=== PATIENT | female | born 1925 | race Caucasian/White ===

== ENCOUNTER → 2016-03-21 | Outpatient (CLI) | payer OTHER, MEDICARE ==
[~2016-03-21] MED LIST: ACET325T96 PO; AMLO-114 PO; CELE100C PO; CEPH500C PO; CLB/200 PO; DORZ1SOL6 OPR; FURO-85 PO; GLIP2.5T11 PO; IMD/2 PO; LISI5TAB3 PO; LPR50X PO; LSN5 PO; NZRCR TOP; PANT40TA PO; POTA-335 PO; POTA20TA13 PO; PRAMCRE2 TOP; SIMV20TA2 PO; ZLF/50 PO
[2016-03-21 12:37] LABS: BASO % 0.1 %; BASO ABS # 0.01 K/uL (0-0.2); COMPLETE YES; EOS % 1.5 %; HEMATOCRIT 41.4 % (37-47); IG% 0.3 %; LYMPH % 34.3 %; LYMPH ABS # 2.49 K/uL (1.2-3.4); MEAN CELL VOLUME 98.8 fL (80-100); MEAN CORPUSCULAR HEMOGLOBIN 32.5 pg (25-34); MEAN CORPUSCULAR HGB CONC 32.9 g/dl (32-36); MEAN PLATELET VOLUME 12.6 fL (7.4-10.4); MONO % 9.4 %; NEUT % 54.4 %; PLATELET COUNT 168 K/uL (130-400); RED BLOOD COUNT 4.19 M/uL (4.2-5.4); WHITE BLOOD COUNT 7.25 K/uL (4.8-10.8)
[2016-03-21 12:45] LABS: BLOOD UREA NITROGEN 16 mg/dl (7-18); BUN/CREATININE RATIO 19.1 (10-20); CALCIUM 8.9 mg/dl (8.5-10.1); CARBON DIOXIDE 25 mmol/L (21-32); CHLORIDE 109 mmol/L (98-107); CREATININE 0.81 mg/dl (0.60-1.20); GLUCOSE 126 mg/dl (70-99); POTASSIUM 4.3 mmol/L (3.5-5.1); SODIUM 144 mmol/L (136-145)
[2016-03-21 13:02] LABS: ESTIMATED AVERAGE GLUCOSE 146 mg/dl; HA1C FLAG Normal (Normal)
== END | disposition home or self-care (01) ==
LOC: C.LABWYN 13:55
PROVIDERS: ATTEND Internal Medicine
DX: E11.9 Type 2 diabetes mellitus without complications (principal)

== ENCOUNTER → 2016-04-26 | Outpatient (CLI) | payer OTHER, MEDICARE ==
--- NOTE | 2016-04-26 15:36 | DIAGNOSTIC IMAGING REPORT ---
CHEST 2 VIEWS ROUTINE CLINICAL HISTORY: R05 COUGH dyspnea COMPARISON STUDY: 01/10/2016 FINDINGS: There is evidence for minimal infiltrative change medial left base. Lungs otherwise are clear. Mild chronic elevation right hemidiaphragm. IMPRESSION: Small parenchymal infiltrate medial left base Electronically signed by: aMrk Mercado M.D. 04/26/2016 3:35 PM Dictated Date/Time: 04/26/2016 3:34 PM
== END | disposition home or self-care (01) ==
LOC: C.RAD1850 15:02
PROVIDERS: ATTEND Family Medicine
DX: Z11.1 Encounter for screening for respiratory tuberculosis (principal); J98.4 Other disorders of lung

== ENCOUNTER → 2016-06-20 | Outpatient (CLI) | payer OTHER, MEDICARE ==
[2016-06-20 10:53] LABS: BASO % 0.3 %; BASO ABS # 0.02 K/uL (0-0.2); COMPLETE YES; EOS % 1.7 %; IG% 0.3 %; LYMPH % 29.6 %; LYMPH ABS # 2.21 K/uL (1.2-3.4); MEAN CELL VOLUME 100.4 fL (80-100); MEAN CORPUSCULAR HEMOGLOBIN 32.5 pg (25-34); MEAN CORPUSCULAR HGB CONC 32.4 g/dl (32-36); MEAN PLATELET VOLUME 12.3 fL (7.4-10.4); MONO % 10.6 %; NEUT % 57.5 %; PLATELET COUNT 209 K/uL (130-400); RED BLOOD COUNT 4.58 M/uL (4.2-5.4); WHITE BLOOD COUNT 7.46 K/uL (4.8-10.8)
[2016-06-20 11:27] LABS: ESTIMATED AVERAGE GLUCOSE 166 mg/dl; HA1C FLAG Normal (Normal)
[2016-06-20 11:40] LABS: ALT/SGPT 43 U/L (12-78); BLOOD UREA NITROGEN 11 mg/dl (7-18); BUN/CREATININE RATIO 14.3 (10-20); CALCIUM 9.5 mg/dl (8.5-10.1); CARBON DIOXIDE 27 mmol/L (21-32); CHLORIDE 106 mmol/L (98-107); CHOLESTEROL 110 mg/dl (0-200); CREATININE 0.79 mg/dl (0.60-1.20); GLUCOSE 169 mg/dl (70-99); POTASSIUM 3.8 mmol/L (3.5-5.1); SODIUM 142 mmol/L (136-145)
[2016-06-20 11:51] LABS: AST/SGOT 23 U/L (15-37); CHOLESTEROL/HDL RATIO 3.4; HDL CHOLESTEROL 32 mg/dl; LDL CHOLESTEROL CALCULATED 38 mg/dl; TRIGLYCERIDES 199 mg/dl (0-150); VERY LOW DENSITY LIPOPROT CALC 40 mg/dl
== END | disposition home or self-care (01) ==
LOC: C.LABWYN 10:04
PROVIDERS: ATTEND Physician Assistant
DX: E11.9 Type 2 diabetes mellitus without complications (principal); E78.00 Pure hypercholesterolemia, unspecified

== ENCOUNTER 2016-06-27 22:41 | Emergency (ER) | payer OTHER, MEDICARE ==
[~2016-06-27] VITALS: Ht 160 cm; Wt 75.7 kg
[~2016-06-27 22:41] MED LIST changes: -CEPH500C PO; -LSN5 PO; -NZRCR TOP; -POTA20TA13 PO; -PRAMCRE2 TOP
[2016-06-27 22:47] VITALS: TEMP 36.3; Ht 160 cm; Wt 75.7 kg
[2016-06-27] MEDS ORDERED: ACETAMINOPHEN 500 MG TAB PO STA (23:05)
--- NOTE | 2016-06-27 23:16 | EMERGENCY ROOM VISIT NOTE ---
History Report prepared by Werner: Jose Martinez Under the Supervision of: Dr. Bismark Knight M.D. First contact with patient: 22:58 Chief Complaint: FALL Stated Complaint: FALL History of Present Illness The patient is an 89 year old female who presents to the Emergency Room with complaints of a sudden fall occurring prior to arrival. The patient's daughter states that the patient fell and hit her right leg, arm, and the right side of her face. She is additionally complaining of some neck pain. The daughter states that the patient just lost balance while getting into bed. The daughter states that the patient had a stroke in the past, and she has some right-sided weakness leading her to fall. Source of History: patient, family Onset: prior to arrival Position: other (global) Quality: other (fall) Timing: other (sudden) Associated Symptoms: + neck pain Note: Associated symptoms: Facial pain Review of Systems See HPI for pertinent positives & negatives. A total of 10 systems reviewed and were otherwise negative. Past Medical & Surgical Medical Problems: (1) Coronary artery disease (2) CVA (cerebral vascular accident) (3) History of orthopedic surgery (4) Hyperlipidemia (5) Hypertension (6) Precordial chest pain Surgical Problems: (1) History of appendectomy (2) History of cholecystectomy (3) History of hysterectomy Family History Cancer Diabetes mellitus Heart disease Hypertension Stroke Social History Smoking Status: Never Smoker Drug Use: none Marital Status: Housing Status: lives with family Occupation Status: retired Current/Historical Medications Scheduled Amlodipine (Norvasc), 10 MG PO QAM Celecoxib (Celebrex), 200 MG PO 3XWK Cephalexin Monohydrate (Keflex), 500 MG PO TID Dorzolamide Hcl-Timolol Maleat (Cosopt Oph), 1 DROP OPR BID Furosemide (Lasix), 20 MG PO QAM Glipizide (Glipizide Er), 2.5 MG PO QAM Ketoconazole (Ketoconazole), 1 APPLN TOP BID Lisinopril (Lisinopril), 5 MG PO DAILY Metoprolol Tartrate (Metoprolol Tartrate), 75 MG PO BID Pantoprazole (Protonix), 40 MG PO DAILY Potassium Chloride Microencaps (Potassium Chloride Er), 1 TAB PO DAILY Sertraline HCl (Sertraline HCl), 75 MG PO QAM Simvastatin (Zocor), 20 MG PO QPM Scheduled PRN Acetaminophen Tab (Tylenol), 650 MG PO Q4H PRN for Pain or Fever Celecoxib (CeleBREX), 200 MG PO 4XWK PRN for Pain Loperamide Hcl (Imodium), 2 MG PO Q4H PRN for Diarrhea Wusulewnz-Gmrljplxntmlo-Vpeorp (Preparation H), 1 APPLN TOP BID PRN for irritation Allergies Coded Allergies: No Known Allergies (Unverified , 06/27/16) Physical Exam Vital Signs Date Time Temp Pulse Resp B/P Pulse Ox O2 Delivery O2 Flow Rate FiO2 06/28/16 01:25 77 18 140/75 92 Room Air 06/28/16 00:08 79 18 153/80 93 Room Air 06/28/16 00:08 79 20 153/81 92 Room Air 06/27/16 23:17 82 18 171/87 97 Room Air 06/27/16 22:47 36.3 81 18 165/70 98 Room Air Physical Exam GENERAL: Elderly and anxious appearing. Minimal distress HEENT: No acute trauma, normocephalic atraumatic, mucous membranes moist, no nasal congestion, no scleral icterus. NECK: No stridor, no adenopathy, no meningismus, trachea is midline. LUNGS: No dyspnea. Clear to auscultation and equal bilaterally. No wheeze, no rhonchi. HEART: Regular rate and rhythm. No murmurs, rubs, gallops appreciated. ABDOMEN: Soft, nontender, bowel sounds positive, no masses appreciated, no peritonitis. BACK: No midline tenderness, no CVA tenderness EXTREMITIES: Tenderness to palpation over the right lateral thigh. Normal motion all extremities, no cyanosis, no edema. NEUROLOGIC: Mildly demented. GCS 14. Alert and oriented, no acute motor or sensory deficits, no focal weakness, cranial nerves grossly intact. SKIN: No rash, no jaundice, no diaphoresis. Medical Decision & Procedures ER Provider Diagnostic Interpretation: X ray results are stated below per my interpretation. 4 view right femur: Arthritic changes. No fracture. No dislocation 1 view pelvis: Arthritic changes. No fracture. No dislocation 1 view chest: No fracture. No dislocation. No pneumothorax. No infiltrate appreciated. CT results and stated below per my review and radiologist interpretation: CT HEAD: No acute intracranial hemorrhage of mass effect. No evidence of skull fracture. Chronic findings are unchanged from prior CT 01/10/16: Left frontal encephalomalacia superiorly, consistent with remote infarct, Wallerian degeneration at left tata. White matter hypodensities, likely representing chronic small vessel ischemic changes. CT C SPINE: No evidence of acute fracture. Moderate to sever multilevel degenerative changes including posterior disc/ osteophyte complex at C5-C6 causing moderate to severe canal narrowing and uncovertebral osteophytes and facet arthropathy causing multilevel foraminal narrowings. Facet fusion at C2-C3. Laboratory Results Test 06/27/16 23:00 Urine Color YELLOW Urine Appearance CLEAR (CLEAR) Urine pH 7.0 (4.5-7.5) Urine Specific [place] 1.010 (1.000-1.030) Urine Protein NEG (NEG) Urine Glucose (UA) 1+ (NEG) Urine Ketones NEG (NEG) Urine Occult Blood NEG (NEG) Urine Nitrite POS (NEG) Urine Bilirubin NEG (NEG) Urine Urobilinogen NEG (NEG) Urine Leukocyte Esterase LARGE (NEG) Urine WBC (Auto) >30 /hpf (0-5) Urine RBC (Auto) 0-4 /hpf (0-4) Urine Hyaline Casts (Auto) 1-5 /lpf (0-5) Urine Epithelial Cells (Auto) 0-5 /lpf (0-5) Urine Bacteria (Auto) 4+ (NEG) Laboratory results as reviewed by me. Medications Administered Medications (Trade) Dose Ordered Sig/Anup Route Start Time Stop Time Status Last Admin Dose Admin Acetaminophen (Tylenol Tab) 1,000 mg NOW STAT PO 06/27/16 23:05 06/27/16 23:08 DC 06/27/16 23:16 1,000 MG Cephalexin Monohydrate (Keflex Cap) 500 mg NOW ONCE PO 06/28/16 01:00 06/28/16 01:01 DC 06/28/16 01:21 500 MG ED Course 2258: The patient was evaluated in room C9. A complete history and physical exam was performed. 2305: Tylenol Tab 1000mg PO 0050: I reevaluated the patient, and she was stable. The patient and daughter agree with the treatment plan for UTI. 0100: Keflex Cap 500mg PO 0135: Reevaluated the patient. Discussed results and discharge instructions: She verbalized understanding and agreement. The patient is ready for discharge. Medical Decision Differential: Sepsis, Infectious (UTI/Pneumonia/Meningitis/etc), Metabolic/ Electrolyte Abnormality, Cardiac, Hepatic, Endocrine, Toxicologic, Neurologic, amongst other pathologies entertained. 89 yr old pleasant female who feel this evening. Daughter notes mild confusion similar to previous UTI issues. UA consistent with UTI. CT head/neck negative as are cxr, pelvxray, femur xrays. Diffuse arthritic changes. Lives at [facility] I feel that she would be suitable for outpatient tx and daughter agrees. Stable and happy in no distress. Keflex for UTI which previous susceptible to. Impression Primary Impression: Fall Additional Impression: UTI (urinary tract infection) Scribe Attestation The scribe's documentation has been prepared under my direction and personally reviewed by me in its entirety. I confirm that the note above accurately reflects all work, treatment, procedures, and medical decision making performed by me. Departure Information Dispostion Home / Self-Care Prescriptions Cephalexin Monohydrate (Keflex) 500 Mg Cap 500 MG PO TID for 7 Days, #21 CAP Prov: Bismark Knight M.D. 06/28/16 Referrals [facility] (PCP) Forms HOME CARE DOCUMENTATION FORM, IMPORTANT VISIT INFORMATION Patient Instructions ED Mechanical Fall, My [facility] Problem Qualifiers Primary Impression: Fall Encounter type: initial encounter Qualified Codes: W19.XXXA - Unspecified fall, initial encounter Additional Impression: UTI (urinary tract infection) Urinary tract infection type: acute cystitis Hematuria presence: without hematuria Qualified Codes: N30.00 - Acute cystitis without hematuria
[2016-06-27] MEDS ORDERED: LSN5 PO (23:28)
[2016-06-27] MEDS ORDERED: POTA20TA13 PO (23:30)
[2016-06-27] MEDS ORDERED: NZRCR TOP (23:33)
[2016-06-27] MEDS ORDERED: PRAMCRE2 TOP (23:34)
[2016-06-27 23:37] LABS: URINE APPEARANCE CLEAR (CLEAR); URINE BILIRUBIN NEG (NEG); URINE COLOR YELLOW; URINE EPITHELIAL CELL AUTO 0-5 /lpf (0-5); URINE NITRITE POS (NEG); UROBILINOGEN NEG (NEG); ZZURINE CULT IF INDIC CATH YES
[2016-06-27 23:41] LABS: MANUAL MICROSCOPIC REQUIRED? NO; REVIEW REQ? NO
[2016-06-28] MEDS ORDERED: CEPHALEXIN MONOHYDRATE 250 MG CAP PO ONE (01:00)
[2016-06-28 01:25] VITALS: BP 140/75; PULSE 77; O2SAT 92
[2016-06-28] MEDS ORDERED: CEPH500C PO (01:30)
--- NOTE | 2016-06-28 06:52 | DIAGNOSTIC IMAGING REPORT ---
CT OF THE CERVICAL SPINE WITHOUT CONTRAST CLINICAL HISTORY: Fall, right head injury, complaining lateral neck pain. COMPARISON STUDY: No previous studies for comparison. TECHNIQUE: Helical axial images of the cervical spine were obtained without IV contrast. Sagittal and coronal reconstructions were viewed. FINDINGS: There is slight reversal of the normal cervical lordosis. No acute fracture is present. The craniocervical junction is intact. There is severe degenerative disc disease at C5-C6. There are severe multilevel facet arthrosis. There is no prevertebral edema. IMPRESSION: 1. No acute cervical spine fracture or subluxation. 2. Severe degenerative disc disease at C5-C6 and severe multilevel facet arthrosis. 3. Reversal of the normal cervical lordosis. Electronically signed by: Ozzie Dickson M.D. 06/28/2016 6:50 AM Dictated Date/Time: 06/28/2016 6:48 AM
--- NOTE | 2016-06-28 07:21 | DIAGNOSTIC IMAGING REPORT ---
HEAD CT NONCONTRAST CT DOSE: 942.10 mGy.cm HISTORY: fall, right head injury TECHNIQUE: Multiaxial CT images of the head were performed without the use of intravenous contrast. Automated exposure control was utilized for this study. Comparison: Head CT 01/10/2016. Findings: The paranasal sinuses and mastoid air cells are clear. The calvarium and skull base are intact. There is no mass, hematoma, midline shift, acute infarct. White matter hypodensity is nonspecific but suggestive of microvascular ischemic change. The ventricles and sulci demonstrate mild age-related involutional changes. Old left frontoparietal infarct, unchanged. Impression: No acute intracranial abnormality. Old left frontoparietal infarct, unchanged. Electronically signed by: Yuriy Dale M.D. 06/28/2016 7:20 AM Dictated Date/Time: 06/28/2016 7:18 AM
--- NOTE | 2016-06-28 07:58 | DIAGNOSTIC IMAGING REPORT ---
PELVIS 1 OR 2 VIEW ROUTINE CLINICAL HISTORY: Right hip pain s/p fall COMPARISON STUDY: CT of the abdomen and pelvis January 10, 2016. FINDINGS: The sacroiliac joints and symphysis pubis are intact. There is no acute fracture within the pelvis or the hips. There is mild to moderate arthritis within the hips. The lateral proximal right femur is better depicted on the right femur radiographs. IMPRESSION: No acute fracture within the pelvis or hips. Electronically signed by: Ozzie Dickson M.D. 06/28/2016 7:57 AM Dictated Date/Time: 06/28/2016 7:55 AM
--- NOTE | 2016-06-28 07:59 | DIAGNOSTIC IMAGING REPORT ---
RIGHT FEMUR 2 VIEWS ROUTINE CLINICAL HISTORY: Lateral thigh pain following fall. COMPARISON: Right femur and hip radiographs October 24, 2011. FINDINGS: No acute fracture of the right femur is identified. Alignment of the right hip and right knee is anatomic. There is mild to moderate arthritis of the right hip. IMPRESSION: No acute fracture of the right femur. Electronically signed by: Ozzie Dickson M.D. 06/28/2016 7:58 AM Dictated Date/Time: 06/28/2016 7:57 AM
--- NOTE | 2016-06-28 08:00 | DIAGNOSTIC IMAGING REPORT ---
CHEST ONE VIEW PORTABLE CLINICAL HISTORY: Fall. COMPARISON STUDY: Radiograph April 26, 2016. FINDINGS: There is no pneumothorax or pleural effusion. Cardiomediastinal silhouette is normal. There is no evidence of pulmonary edema. There is no consolidation. IMPRESSION: No acute cardiopulmonary findings. Electronically signed by: Ozzie Dickson M.D. 06/28/2016 7:58 AM Dictated Date/Time: 06/28/2016 7:58 AM
--- NOTE | 2016-06-30 11:13 | Pharmacy Progress Note ---
ED Pharmacist Culture FollowUp Date of Service: June 30, 2016. Patient was sent home with a prescription for cephalexin, which should cover the Klebsiella growing from the patient's urine culture.
== END 2016-06-28 01:44 | disposition home or self-care (01) ==
LOC: EDBD 22:41 → C.EDC 22:42
DX: N30.00 Acute cystitis without hematuria (principal); W18.30XA Fall on same level, unspecified, initial encounter; Y92.193 Bedroom in other specified residential institution as the place of occurrence of the external cause; S89.91XA Unspecified injury of right lower leg, initial encounter; S49.91XA Unspecified injury of right shoulder and upper arm, initial encounter; S09.93XA Unspecified injury of face, initial encounter; M54.2 Cervicalgia; I69.351 Hemiplegia and hemiparesis following cerebral infarction affecting right dominant side; I25.10 Atherosclerotic heart disease of native coronary artery without angina pectoris; E78.5 Hyperlipidemia, unspecified; I10 Essential (primary) hypertension; Z83.3 Family history of diabetes mellitus; Z82.49 Family history of ischemic heart disease and other diseases of the circulatory system; Z82.3 Family history of stroke

== ENCOUNTER 2016-07-22 08:32 | Emergency (ER) | payer OTHER, MEDICARE ==
[~2016-07-22] VITALS: Ht 160 cm; Wt 77.6 kg
[~2016-07-22 08:32] MED LIST changes: -LISI5TAB3 PO; +LSN5 PO; +NZRCR TOP; -POTA-335 PO; +POTA20TA13 PO; +PRAMCRE2 TOP
[2016-07-22 08:34] VITALS: Ht 160 cm; Wt 77.6 kg
[2016-07-22 09:16] LABS: URINE APPEARANCE CLEAR (CLEAR); URINE BILIRUBIN NEG (NEG); URINE COLOR YELLOW; URINE EPITHELIAL CELL AUTO 0-5 /lpf (0-5); URINE NITRITE NEG (NEG); URINE PH 7.5 (4.5-7.5); URINE SPECIFIC GRAVITY 1.011 (1.000-1.030); UROBILINOGEN NEG (NEG); ZZUR CULT IF INDIC CLEAN CATCH NO
[2016-07-22] MEDS ORDERED: MoRPHine SULFATE 4 MG/ML 1 ML CARP\\VIAL IV STA (09:23)
[2016-07-22] MEDS ORDERED: SODIUM CHLORIDE 0.9% 500ML 500 ML IV STA (09:23)
[2016-07-22 09:28] LABS: MANUAL MICROSCOPIC REQUIRED? NO; REVIEW REQ? NO
[2016-07-22] MEDS ORDERED: OPTIRAY 320 IV PRN (09:30)
[2016-07-22 09:59] LABS: BASO % 0.1 %; BASO ABS # 0.01 K/uL (0-0.2); COMPLETE YES; EOS % 1.4 %; HEMATOCRIT 45.1 % (37-47); IG% 0.3 %; LYMPH % 18.2 %; LYMPH ABS # 1.41 K/uL (1.2-3.4); MEAN CELL VOLUME 98.7 fL (80-100); MEAN CORPUSCULAR HEMOGLOBIN 32.6 pg (25-34); MEAN PLATELET VOLUME 12.1 fL (7.4-10.4); MONO % 9.2 %; NEUT % 70.8 %; PLATELET COUNT 196 K/uL (130-400); RED BLOOD COUNT 4.57 M/uL (4.2-5.4); WHITE BLOOD COUNT 7.74 K/uL (4.8-10.8)
[2016-07-22 10:18] LABS: BUN/CREATININE RATIO 16.1 (10-20); CALCIUM 8.9 mg/dl (8.5-10.1); CREATININE 0.74 mg/dl (0.60-1.20); POTASSIUM 3.8 mmol/L (3.5-5.1)
--- NOTE | 2016-07-22 12:26 | DIAGNOSTIC IMAGING REPORT ---
HEAD CT NONCONTRAST CT DOSE: HISTORY: fell hit head TECHNIQUE: Multiaxial CT images of the head were performed without the use of intravenous contrast. Automated exposure control was utilized for this study. Comparison: Head CT 06/27/2016. Findings: The paranasal sinuses and mastoid air cells are clear. The calvarium and skull base are intact. There is no mass, hematoma, midline shift, acute infarct. White matter hypodensity is nonspecific but suggestive of microvascular ischemic change. The ventricles and sulci demonstrate mild age-related involutional changes. Old left frontoparietal infarct, unchanged. Impression: No acute intracranial abnormality. Old left frontoparietal infarct, unchanged. Electronically signed by: Yuriy Dale M.D. 07/22/2016 12:22 PM Dictated Date/Time: 07/22/2016 12:19 PM
--- NOTE | 2016-07-22 12:28 | DIAGNOSTIC IMAGING REPORT ---
CT OF THE CERVICAL SPINE WITHOUT CONTRAST CLINICAL HISTORY: r sided neck pain s/p fall COMPARISON STUDY: Cervical spine CT 06/27/2016. TECHNIQUE: Helical axial images of the cervical spine were obtained without IV contrast. Sagittal and coronal reconstructions were viewed. FINDINGS: There is slight reversal of the normal cervical lordosis. No acute fracture is present. The craniocervical junction is intact. There is severe degenerative disc disease at C5-C6. There are severe multilevel facet arthrosis. There is no prevertebral edema. IMPRESSION: 1. No change from the prior study. No acute cervical spine fracture or subluxation. 2. Severe degenerative disc disease at C5-C6 and severe multilevel facet arthrosis. 3. Reversal of the normal cervical lordosis. Electronically signed by: Yuriy Dale M.D. 07/22/2016 12:26 PM Dictated Date/Time: 07/22/2016 12:22 PM
--- NOTE | 2016-07-22 12:37 | DIAGNOSTIC IMAGING REPORT ---
ABDOMEN AND PELVIS CT WITH IV CONTRAST CT DOSE: 1735.32 mGy.cm HISTORY: Right lower quadrant abdominal pain. TECHNIQUE: Multiaxial CT images of the abdomen and pelvis were performed following the use of intravenous contrast. COMPARISON STUDY: Abdomen and pelvis CT 01/10/2016. FINDINGS: Patchy densities within the lung bases posteriorly favor mild dependent change. Hepatic steatosis. Colonic diverticulosis. A 2 cm cyst within the left ovary, unchanged. No fractures within the visualized osseous structures. The gallbladder, spleen, adrenal glands, and pancreas are unremarkable. No retroperitoneal lymphadenopathy. Bilateral cortical renal scarring. Multiple bilateral renal hypodense lesions. These range in size from 3 mm up to 2.7 cm. The larger lesions favor cysts. No hydronephrosis. Calcified and normal caliber abdominal aorta. The bladder is unremarkable. The uterus and right ovary are within normal limits. Minimal pelvic free fluid. The appendix is not clearly identified. No bowel wall thickening or obstruction. IMPRESSION: 1. No acute process within the abdomen or pelvis. 2. No bowel wall thickening or obstruction. 3. Colonic diverticulosis. 4. Stable 2 cm left ovarian cyst. 5. Trace pelvic free fluid. This may be physiologic. 6. Additional findings as described above. Electronically signed by: Yuriy Dale M.D. 07/22/2016 12:36 PM Dictated Date/Time: 07/22/2016 12:27 PM
--- NOTE | 2016-07-22 15:21 | EMERGENCY ROOM VISIT NOTE ---
History Report prepared by Werner: Jas Shah Under the Supervision of: Dr. Luis Bruner D.O. First contact with patient: 08:48 Chief Complaint: ABDOMINAL PAIN Stated Complaint: ABD PAIN Nursing Triage Summary: pt presents via ALS per ALS report from [facility] pt has been complaining of right sided abd pain she is unsure of when her last bowel movement was she is tender with palpation to her right abdomen, "Like I have to pee but can't" History of Present Illness The patient is an 89 year old female who presents to the Emergency Room via ALS from [facility] with complaints of right-sided abdominal pain that started prior to arrival. The patient says that she is unsure when it started. Per the nursing staff, the patient has a history of urinary tract infections. The patient has been nauseated. She had been unable to urinate, but was catheterized here and has urinated a bit. The patient's last bowel movement is not certain. The patient says that she still is having her abdominal pain even after being catheterized. Per the patient's daughter, the patient was acting oddly yesterday, but was not complaining of abdominal pain. The patient was complaining of arm pain, as she had fallen recently and hit her head. No imaging was done, but she was reevaluated every couple hours and was determined to be fine. The patient's daughter says that the patient's mental status is a bit below baseline currently, and that the patient acts like this when having a UTI. However, the inability to urinate is not usual for her UTI's. The patient denies any chest pain, shortness of breath, vomiting, or pain or burning with urination. She did not eat breakfast this morning. The patient has a history of a right-sided stroke, as well as an appendectomy. Per the patient's daughter, the patient's right-sided abdominal pain has been there off and on for a while, and it is thought that the pain is from scar tissue from the appendectomy. The patient still has her gallbladder. Source of History: patient, family, nursing staff Onset: Prior to arrival Position: abdomen (right-sided) Timing: other (persistent) Associated Symptoms: + nausea, + urinary symptoms (inability to urinate- denies pain or burning with urination), No chest pain, No SOB, No vomiting Note: Associated symptoms: Mental status below baseline, similar to when having UTI's , per daughter. Fell a few days ago, complaining of arm pain yesterday. Review of Systems See HPI for pertinent positives & negatives. A total of 10 systems reviewed and were otherwise negative. Past Medical & Surgical Medical Problems: (1) Coronary artery disease (2) CVA (cerebral vascular accident) (3) History of orthopedic surgery (4) Hyperlipidemia (5) Hypertension (6) Precordial chest pain Surgical Problems: (1) History of appendectomy (2) History of cholecystectomy (3) History of hysterectomy Family History Cancer Diabetes mellitus Heart disease Hypertension Stroke Social History Smoking Status: Never Smoker Drug Use: none Marital Status: Housing Status: lives with family Occupation Status: retired Current/Historical Medications Scheduled Amlodipine (Norvasc), 10 MG PO QAM Dorzolamide Hcl-Timolol Maleat (Cosopt Oph), 1 DROP OPR BID Furosemide (Lasix), 20 MG PO QAM Glipizide (Glipizide Er), 2.5 MG PO QAM Lisinopril (Lisinopril), 5 MG PO DAILY Metoprolol Tartrate (Metoprolol Tartrate), 75 MG PO BID Pantoprazole (Protonix), 40 MG PO DAILY Potassium Chloride Microencaps (Potassium Chloride Er), 20 MEQ PO DAILY Sertraline HCl (Sertraline HCl), 75 MG PO QAM Simvastatin (Zocor), 20 MG PO QPM Scheduled PRN Acetaminophen Tab (Tylenol), 650 MG PO Q4H PRN for Pain or Fever Celecoxib (CeleBREX), 200 MG PO DAILY PRN for Pain Loperamide Hcl (Imodium), 2 MG PO Q4H PRN for Diarrhea Allergies Coded Allergies: No Known Allergies (Unverified , 07/22/16) Physical Exam Vital Signs Date Time Temp Pulse Resp B/P (MAP) Pulse Ox O2 Delivery O2 Flow Rate FiO2 07/22/16 14:35 69 16 134/99 94 Room Air 07/22/16 11:42 66 18 161/79 93 Room Air 07/22/16 10:36 69 18 173/79 98 Room Air 07/22/16 09:30 68 16 173/79 97 Room Air 07/22/16 08:38 75 07/22/16 08:34 36.7 74 18 168/83 96 Room Air Physical Exam GENERAL: lying in bed, mild distress, chronically ill-appearing EYE EXAM: normal conjunctiva OROPHARYNX: no exudate, no erythema, lips, buccal mucosa, and tongue normal and mucous membranes are moist NECK: supple, no nuchal rigidity, no adenopathy, non-tender LUNGS: Clear to auscultation. Normal chest wall mechanics HEART: no murmurs, S1 normal and S2 normal ABDOMEN: abdomen soft, tender to palpation in right lower quadrant, normo- active bowel sounds, no masses, no rebound or guarding. BACK: Back is symmetrical on inspection and there is no deformity, no midline tenderness, no CVA tenderness. SKIN: no rashes and no bruising UPPER EXTREMITIES: upper extremities are grossly normal. LOWER EXTREMITIES: No pitting edema. NEURO EXAM: Awake alert and oriented to person place but not year. Cranial nerves II-XII grossly intact, normal speech, no gross weakness of legs. At baseline per daughter. Medical Decision & Procedures ER Provider Diagnostic Interpretation: CT results as stated below per my review and the radiologist's interpretation: ABDOMEN AND PELVIS CT WITH IV CONTRAST CT DOSE: 1735.32 mGy.cm HISTORY: Right lower quadrant abdominal pain. TECHNIQUE: Multiaxial CT images of the abdomen and pelvis were performed following the use of intravenous contrast. COMPARISON STUDY: Abdomen and pelvis CT 01/10/2016. FINDINGS: Patchy densities within the lung bases posteriorly favor mild dependent change. Hepatic steatosis. Colonic diverticulosis. A 2 cm cyst within the left ovary, unchanged. No fractures within the visualized osseous structures. The gallbladder, spleen, adrenal glands, and pancreas are unremarkable. No retroperitoneal lymphadenopathy. Bilateral cortical renal scarring. Multiple bilateral renal hypodense lesions. These range in size from 3 mm up to 2.7 cm. The larger lesions favor cysts. No hydronephrosis. Calcified and normal caliber abdominal aorta. The bladder is unremarkable. The uterus and right ovary are within normal limits. Minimal pelvic free fluid. The appendix is not clearly identified. No bowel wall thickening or obstruction. IMPRESSION: 1. No acute process within the abdomen or pelvis. 2. No bowel wall thickening or obstruction. 3. Colonic diverticulosis. 4. Stable 2 cm left ovarian cyst. 5. Trace pelvic free fluid. This may be physiologic. 6. Additional findings as described above. Electronically signed by: Yuriy Dale M.D. 07/22/2016 12:36 PM Dictated Date/Time: 07/22/2016 12:[address] CT DOSE: HISTORY: fell hit head TECHNIQUE: Multiaxial CT images of the head were performed without the use of intravenous contrast. Automated exposure control was utilized for this study. Comparison: Head CT 06/27/2016. Findings: The paranasal sinuses and mastoid air cells are clear. The calvarium and skull base are intact. There is no mass, hematoma, midline shift, acute infarct. White matter hypodensity is nonspecific but suggestive of microvascular ischemic change. The ventricles and sulci demonstrate mild age-related involutional changes. Old left frontoparietal infarct, unchanged. Impression: No acute intracranial abnormality. Old left frontoparietal infarct, unchanged. Electronically signed by: Yuriy Dale M.D. 07/22/2016 12:22 PM Dictated Date/Time: 07/22/2016 12:[address] OF THE CERVICAL SPINE WITHOUT CONTRAST CLINICAL HISTORY: r sided neck pain s/p fall COMPARISON STUDY: Cervical spine CT 06/27/2016. TECHNIQUE: Helical axial images of the cervical spine were obtained without IV contrast. Sagittal and coronal reconstructions were viewed. FINDINGS: There is slight reversal of the normal cervical lordosis. No acute fracture is present. The craniocervical junction is intact. There is severe degenerative disc disease at C5-C6. There are severe multilevel facet arthrosis. There is no prevertebral edema. IMPRESSION: 1. No change from the prior study. No acute cervical spine fracture or subluxation. 2. Severe degenerative disc disease at C5-C6 and severe multilevel facet arthrosis. 3. Reversal of the normal cervical lordosis. Electronically signed by: Yuriy Dale M.D. 07/22/2016 12:26 PM Dictated Date/Time: 07/22/2016 12:22 PM Laboratory Results 07/22/16 09:30 Red Blood Count 4.57, Mean Corpuscular Volume 98.7, Mean Corpuscular Hemoglobin 32.6, Mean Corpuscular Hemoglobin Concent 33.0, Mean Platelet Volume 12.1, Neutrophils (%) (Auto) 70.8, Lymphocytes (%) (Auto) 18.2, Monocytes (%) (Auto) 9.2, Eosinophils (%) (Auto) 1.4, Basophils (%) (Auto) 0.1, Neutrophils # (Auto) 5.48, Lymphocytes # (Auto) 1.41, Monocytes # (Auto) 0.71, Eosinophils # (Auto) 0.11, Basophils # (Auto) 0.01 07/22/16 09:30 Test 07/22/16 08:59 07/22/16 09:30 Urine Color YELLOW Urine Appearance CLEAR (CLEAR) Urine pH 7.5 (4.5-7.5) Urine Specific [place] 1.011 (1.000-1.030) Urine Protein NEG (NEG) Urine Glucose (UA) NEG (NEG) Urine Ketones NEG (NEG) Urine Occult Blood NEG (NEG) Urine Nitrite NEG (NEG) Urine Bilirubin NEG (NEG) Urine Urobilinogen NEG (NEG) Urine Leukocyte Esterase NEG (NEG) Urine WBC (Auto) 0 /hpf (0-5) Urine RBC (Auto) 0-4 /hpf (0-4) Urine Hyaline Casts (Auto) 0 /lpf (0-5) Urine Epithelial Cells (Auto) 0-5 /lpf (0-5) Urine Bacteria (Auto) NEG (NEG) White Blood Count 7.74 K/uL (4.8-10.8) Red Blood Count 4.57 M/uL (4.2-5.4) Hemoglobin 14.9 g/dL (12.0-16.0) Hematocrit 45.1 % (37-47) Mean Corpuscular Volume 98.7 fL (80-100) Mean Corpuscular Hemoglobin 32.6 pg (25-34) Mean Corpuscular Hemoglobin Concent 33.0 g/dl (32-36) Platelet Count 196 K/uL (130-400) Mean Platelet Volume 12.1 fL (7.4-10.4) Neutrophils (%) (Auto) 70.8 % Lymphocytes (%) (Auto) 18.2 % Monocytes (%) (Auto) 9.2 % Eosinophils (%) (Auto) 1.4 % Basophils (%) (Auto) 0.1 % Neutrophils # (Auto) 5.48 K/uL (1.4-6.5) Lymphocytes # (Auto) 1.41 K/uL (1.2-3.4) Monocytes # (Auto) 0.71 K/uL (0.11-0.59) Eosinophils # (Auto) 0.11 K/uL (0-0.5) Basophils # (Auto) 0.01 K/uL (0-0.2) RDW Standard Deviation 45.0 fL (36.4-46.3) RDW Coefficient of Variation 12.5 % (11.5-14.5) Immature Granulocyte % (Auto) 0.3 % Immature Granulocyte # (Auto) 0.02 K/uL (0.00-0.02) Anion Gap 8.0 mmol/L (3-11) Est Creatinine Clear Calc Drug Dose 50.8 ml/min Estimated GFR () 83.2 Estimated GFR (Non- 71.8 BUN/Creatinine Ratio 16.1 (10-20) Calcium Level 8.9 mg/dl (8.5-10.1) Total Bilirubin 0.5 mg/dl (0.2-1) Direct Bilirubin 0.1 mg/dl (0-0.2) Aspartate Amino Transf (AST/SGOT) 17 U/L (15-37) Alanine Aminotransferase (ALT/SGPT) 31 U/L (12-78) Alkaline Phosphatase 88 U/L (45-117) Total Protein 7.4 gm/dl (6.4-8.2) Albumin 3.8 gm/dl (3.4-5.0) Lipase 94 U/L (73-393) Laboratory results per my review. Medications Administered Medications (Trade) Dose Ordered Sig/Anup Route Start Time Stop Time Status Last Admin Dose Admin Morphine Sulfate (MoRPHine SULFATE INJ) 2 mg NOW STAT IV 07/22/16 09:23 07/22/16 09:24 DC 07/22/16 09:23 2 MG Sodium Chloride 500 ml @ 999 mls/hr Q31M STAT IV 07/22/16 09:23 07/22/16 09:53 DC 07/22/16 09:23 999 MLS/HR ED Course ED COURSE: Vital signs were reviewed and showed hypertensive vitals. The patients medical record was reviewed The above diagnostic studies were performed and reviewed. ED treatments and interventions as stated above. 0900: The patient was evaluated in room A12B. A complete history and physical examination was performed. The patient was straight catheterized 400 milliliters with no improvement of pain. 0923: Ordered NSS 500 ml @ 999 mls/hr IV, Morphine Sulfate Inj 2 mg IV. 1150: I reevaluated and updated the patient. 1253: Upon reevaluation, the patient urinated multiple times. I discussed my findings with the patient and she understands and agrees with the treatment plan. Based on the patients age, coexisting illnesses, exam and lab findings the decision to treat as an outpatient was made. The patient remained stable while under my care. The patient appeared well at the time of discharge. Medical Decision Differential diagnoses includes but is not limited to gastritis, peptic ulcer disease, GERD, gallbladder disease, pancreatitis, small bowel obstruction, acute coronary syndrome, pericarditis, ischemic bowel, irritable bowel disease, irritable bowel syndrome, appendicitis, diverticulitis, malignancy, hernia, urinary tract infection, torsion, perforation, trauma, infectious. Medication Reconciliation: I attest that I have personally reviewed the patient' s current medication list. Blood pressure screening: Patient was found to have an elevated blood pressure and was referred to their primary doctor for recheck and further treatment. Patient is an 89-year-old female who presents the ER for right lower quadrant abdominal pain. She is also complaining that she had to urinate. She is bladder scanned for greater than 400 MLS and was cathed. Following the catheterization she still had the same pain. Labs were obtained and vitals were unremarkable. CBC along with BMP, LFTs, bilirubin and lipase were normal. UA shows no signs of infection. CT of the head, cervical spine and abdomen are benign. Daughter notes that she always has chronic abdominal pain but this is worse. She does note that she is at her baseline or just slightly below. On my exam the patient is answering questions but unable to give a history of how long the pain has been present which is normal per daughter. Daughter was updated bedside. Patient was discharged back to residential. Discussed with Pt concerning signs and symptoms to watch out for. Pt was instructed to follow up with their PCP and discussed with the patient their option to return to the ED at anytime for persistent or worsening symptoms. The appropriate anticipatory guidance and out-patient management, including indications for return to the emergency department, were explained at length to the patient and understood. Impression Primary Impression: Abdominal pain Scribe Attestation The scribe's documentation has been prepared under my direction and personally reviewed by me in its entirety. I confirm that the note above accurately reflects all work, treatment, procedures, and medical decision making performed by me. Departure Information Dispostion Home / Self-Care Referrals PRITESH HACKETT (PCP) Forms HOME CARE DOCUMENTATION FORM, IMPORTANT VISIT INFORMATION Patient Instructions Abdominal Pain - [facility] Additional Instructions Please follow up with your primary care doctor with in the next 24 hours. Any worsening of your symptoms, please return to the ED immediately. This includes worsening pain, fevers greater than 100.4, inability to void, or any other concerning signs or symptoms from your standpoint. Problem Qualifiers Primary Impression: Abdominal pain Abdominal location: unspecified location Qualified Codes: R10.9 - Unspecified abdominal pain
[2016-07-22 17:54] VITALS: BP 138/88; PULSE 74; TEMP 36.7; O2SAT 97
== END 2016-07-22 18:09 | disposition home or self-care (01) ==
LOC: EDBD 08:32 → C.EDA 08:34
DX: R10.31 Right lower quadrant pain (principal); E78.5 Hyperlipidemia, unspecified; I10 Essential (primary) hypertension; I25.10 Atherosclerotic heart disease of native coronary artery without angina pectoris; Z87.440 Personal history of urinary (tract) infections; Z86.73 Personal history of transient ischemic attack (TIA), and cerebral infarction without residual deficits; Z90.710 Acquired absence of both cervix and uterus; Z90.49 Acquired absence of other specified parts of digestive tract; Z98.890 Other specified postprocedural states; Z79.899 Other long term (current) drug therapy; Z80.9 Family history of malignant neoplasm, unspecified; Z83.3 Family history of diabetes mellitus; Z82.49 Family history of ischemic heart disease and other diseases of the circulatory system; Z82.3 Family history of stroke

== ENCOUNTER 2016-09-16 06:22 | Emergency (ER) | payer OTHER, MEDICARE ==
[~2016-09-16] VITALS: Ht 160 cm; Wt 74.8 kg
[~2016-09-16 06:22] MED LIST changes: -CELE100C PO; -NZRCR TOP; -PRAMCRE2 TOP
[2016-09-16 06:35] VITALS: TEMP 37; Ht 160 cm; Wt 74.8 kg
[2016-09-16] MEDS ORDERED: CLB/200 PO (06:49)
[2016-09-16 07:03] LABS: URINE APPEARANCE CLEAR (CLEAR); URINE BILIRUBIN NEG (NEG); URINE COLOR YELLOW; URINE NITRITE NEG (NEG); URINE PH 8.5 (4.5-7.5); URINE SPECIFIC GRAVITY 1.011 (1.000-1.030); UROBILINOGEN NEG (NEG); ZZURINE CULT IF INDIC CATH NO
[2016-09-16] MEDS ORDERED: SODIUM CHLORIDE 0.9% 1000ML 1,000 ML IV STA (07:09)
[2016-09-16] MEDS ORDERED: SODIUM CHLORIDE 0.9% 250ML 250 ML IV STA (07:09)
[2016-09-16] MEDS ORDERED: ONDANSETRON INJ 2 MG/ML 2 ML VIAL IV STA (07:09)
[2016-09-16] MEDS ORDERED: FENTANYL CITRATE INJ 50 MCG/1 ML 2 ML VIAL IV STA (07:09)
[2016-09-16 07:12] LABS: MANUAL MICROSCOPIC REQUIRED? NO; REVIEW REQ? NO
--- NOTE | 2016-09-16 07:12 | EMERGENCY ROOM VISIT NOTE ---
History Report prepared by Werner: Usha Munguia Under the Supervision of: Dr. Milagros Owen M.D. First contact with patient: 07:01 Chief Complaint: URINARY SYMPTOMS Stated Complaint: URINARY SYMPTOMS/UNABLE TO VOID Nursing Triage Summary: arrived via amb from [facility] in [place]. pt recently hospitalized for uti. c/oright flank pain and difficulty voiding. pt arrives with a saturated brief and clotyhing all soiled with large amounts of urine.pt c/o right flank pain. History of Present Illness The patient is an 89 year old female who presents to the Emergency Room with complaints of persistent urinary symptoms that began prior to arrival. She currently rates her discomfort as a 5/10 in severity. Per nursing staff, the patient was recently evaluated in the hospital for a urinary tract infection. Nursing staff reports that the patient arrives via ALS from [facility] after having difficulty voiding. Nursing notes reports that the patient was saturated with urine upon arrival to the emergency department. The patient complains of intermittent right lower quadrant abdominal pain, but the patient' s daughter notes that the patient has had this worked up in the past and it is believed to be related to scar tissue from her appendectomy. The patient additionally notes right flank pain. She denies any dysuria. The patient states that she has been experiencing right neck pain. She denies any vomiting or shortness of breath. The patient states that she has intermittent diarrhea. She reports normal fluid intake and appetite. Source of History: patient, family (daughter), nursing staff Onset: prior to arrival Position: other (global) Symptom Intensity: 5/10 Quality: other (urinary symptoms) Timing: other (persistent) Associated Symptoms: + neck pain, + abdominal pain (right lower quadrant), + diarrhea, No SOB, No vomiting Note: Associated Symptoms: right flank pain Review of Systems See HPI for pertinent positives & negatives. A total of 10 systems reviewed and were otherwise negative. Past Medical & Surgical Medical Problems: (1) Coronary artery disease (2) CVA (cerebral vascular accident) (3) History of orthopedic surgery (4) Hyperlipidemia (5) Hypertension (6) Precordial chest pain Surgical Problems: (1) History of appendectomy (2) History of cholecystectomy (3) History of hysterectomy Family History Cancer Diabetes mellitus Heart disease Hypertension Stroke Social History Smoking Status: Never Smoker Drug Use: none Marital Status: Housing Status: lives with family Occupation Status: retired Current/Historical Medications Scheduled Amlodipine (Norvasc), 10 MG PO QAM Celecoxib (CeleBREX), 200 MG PO 3XWK Dorzolamide Hcl-Timolol Maleat (Cosopt Oph), 1 DROP OPR BID Furosemide (Lasix), 20 MG PO QAM Glipizide (Glipizide Er), 2.5 MG PO QAM Lisinopril (Lisinopril), 5 MG PO DAILY Metoprolol Tartrate (Metoprolol Tartrate), 75 MG PO BID Pantoprazole (Protonix), 40 MG PO DAILY Potassium Chloride Microencaps (Potassium Chloride Er), 20 MEQ PO DAILY Sertraline HCl (Sertraline HCl), 75 MG PO QAM Simvastatin (Zocor), 20 MG PO QPM Scheduled PRN Acetaminophen Tab (Tylenol), 650 MG PO Q4H PRN for Pain or Fever Celecoxib (CeleBREX), 200 MG PO 4XWK PRN for Pain Loperamide Hcl (Imodium), 2 MG PO Q4H PRN for Diarrhea Allergies Coded Allergies: No Known Allergies (Unverified , 09/16/16) Physical Exam Vital Signs Date Time Temp Pulse Resp B/P (MAP) Pulse Ox O2 Delivery O2 Flow Rate FiO2 09/16/16 11:32 65 18 148/52 95 09/16/16 10:53 69 18 151/79 95 Room Air 09/16/16 10:48 66 09/16/16 09:38 61 16 145/83 93 09/16/16 08:26 63 18 159/74 95 Room Air 09/16/16 07:30 64 16 143/56 94 Room Air 09/16/16 07:28 61 09/16/16 06:35 37.0 75 18 166/86 96 Room Air Physical Exam Vital signs reviewed. General: Elderly, chronically ill appearing female, in no significant distress. HEENT: No scleral icterus, PERRLA, neck supple. Atraumatic. Cardiovascular: Regular rate and rhythm, no extra sounds. Pulmonary: Clear to auscultation bilaterally, normal work of breathing. Abdomen: Soft, nontender, nondistended, positive bowel sounds. Musculoskeletal: Atraumatic, no peripheral edema. Neurologic: Patient awake alert and oriented x 3, full strength in all 4 extremities. Cranial nerves 2 through 12 grossly intact. Skin: Warm, dry, no rash Medical Decision & Procedures ER Provider Diagnostic Interpretation: CT results as stated below per my review and radiologist interpretation: CT OF THE ABDOMEN AND PELVIS WITHOUT CONTRAST CLINICAL HISTORY: Right flank pain. Urinary symptoms. COMPARISON STUDY: CT of the abdomen and pelvis July 22, 2016. TECHNIQUE: Axial images of the abdomen and pelvis were obtained without IV contrast. Images were reviewed in the axial, sagittal, and coronal planes. A dose lowering technique was utilized adhering to the principles of ALARA. FINDINGS: Groundglass opacities within the lower lungs likely reflect atelectasis. There is geographic fatty infiltration of the right hepatic lobe. Unenhanced images of the spleen, adrenal glands and pancreas are unremarkable. There are multiple water attenuation bilateral renal lesions. These are suboptimally assessed on this exam but were shown to reflect cysts on contrast enhanced study of July 22, 2016. The bladder is moderately distended. There is no hydronephrosis or a true ureter. There are several punctate left renal calculi. There is no evidence for a bowel obstruction. There is a stable 2.6 cm water attenuation left adnexal lesion which favors a cyst. There is colonic diverticulosis without evidence for acute diverticulitis. No suspicious skeletal lesions are identified. There is no lymphadenopathy. There is extensive atherosclerotic plaque of the abdominal aorta. The caliber is normal. IMPRESSION: 1. Punctate left-sided nephrolithiasis. No ureteral calculi or hydronephrosis. 2. Moderate distention of the bladder. 3. Geographic fatty infiltration of the right hepatic lobe. 4. Sigmoid diverticulosis without evidence for acute diverticulitis. No bowel obstruction. Electronically signed by: Ozzie Dickson M.D. 09/16/2016 7:56 AM Dictated Date/Time: 09/16/2016 7:46 AM Laboratory Results 09/16/16 07:20 Red Blood Count 4.69, Mean Corpuscular Volume 98.3, Mean Corpuscular Hemoglobin 32.6, Mean Corpuscular Hemoglobin Concent 33.2, Mean Platelet Volume 11.5, Neutrophils (%) (Auto) 62.7, Lymphocytes (%) (Auto) 25.0, Monocytes (%) (Auto) 10.7, Eosinophils (%) (Auto) 1.2, Basophils (%) (Auto) 0.2, Neutrophils # (Auto ) 3.68, Lymphocytes # (Auto) 1.47, Monocytes # (Auto) 0.63, Eosinophils # (Auto ) 0.07, Basophils # (Auto) 0.01 09/16/16 07:20 Test 09/16/16 06:25 09/16/16 07:20 Urine Color YELLOW Urine Appearance CLEAR (CLEAR) Urine pH 8.5 (4.5-7.5) Urine Specific [place] 1.011 (1.000-1.030) Urine Protein NEG (NEG) Urine Glucose (UA) NEG (NEG) Urine Ketones NEG (NEG) Urine Occult Blood NEG (NEG) Urine Nitrite NEG (NEG) Urine Bilirubin NEG (NEG) Urine Urobilinogen NEG (NEG) Urine Leukocyte Esterase NEG (NEG) Urine WBC (Auto) 0 /hpf (0-5) Urine RBC (Auto) 0-4 /hpf (0-4) Urine Hyaline Casts (Auto) 0 /lpf (0-5) Urine Epithelial Cells (Auto) 10-20 /lpf (0-5) Urine Bacteria (Auto) NEG (NEG) White Blood Count 5.87 K/uL (4.8-10.8) Red Blood Count 4.69 M/uL (4.2-5.4) Hemoglobin 15.3 g/dL (12.0-16.0) Hematocrit 46.1 % (37-47) Mean Corpuscular Volume 98.3 fL (80-100) Mean Corpuscular Hemoglobin 32.6 pg (25-34) Mean Corpuscular Hemoglobin Concent 33.2 g/dl (32-36) Platelet Count 170 K/uL (130-400) Mean Platelet Volume 11.5 fL (7.4-10.4) Neutrophils (%) (Auto) 62.7 % Lymphocytes (%) (Auto) 25.0 % Monocytes (%) (Auto) 10.7 % Eosinophils (%) (Auto) 1.2 % Basophils (%) (Auto) 0.2 % Neutrophils # (Auto) 3.68 K/uL (1.4-6.5) Lymphocytes # (Auto) 1.47 K/uL (1.2-3.4) Monocytes # (Auto) 0.63 K/uL (0.11-0.59) Eosinophils # (Auto) 0.07 K/uL (0-0.5) Basophils # (Auto) 0.01 K/uL (0-0.2) RDW Standard Deviation 43.7 fL (36.4-46.3) RDW Coefficient of Variation 12.1 % (11.5-14.5) Immature Granulocyte % (Auto) 0.2 % Immature Granulocyte # (Auto) 0.01 K/uL (0.00-0.02) Anion Gap 4.0 mmol/L (3-11) Est Creatinine Clear Calc Drug Dose 46.8 ml/min Estimated GFR () 76.9 Estimated GFR (Non- 66.4 BUN/Creatinine Ratio 11.9 (10-20) Calcium Level 9.1 mg/dl (8.5-10.1) Total Bilirubin 0.6 mg/dl (0.2-1) Direct Bilirubin 0.1 mg/dl (0-0.2) Aspartate Amino Transf (AST/SGOT) 20 U/L (15-37) Alanine Aminotransferase (ALT/SGPT) 36 U/L (12-78) Alkaline Phosphatase 86 U/L (45-117) Total Protein 7.0 gm/dl (6.4-8.2) Albumin 3.5 gm/dl (3.4-5.0) Laboratory results per my review. Medications Administered Medications (Trade) Dose Ordered Sig/Anup Route Start Time Stop Time Status Last Admin Dose Admin Fentanyl Citrate (Fentanyl Inj) 25 mcg NOW STAT IV 09/16/16 07:09 09/16/16 07:11 DC 09/16/16 07:29 25 MCG Ondansetron HCl (Zofran Inj) 4 mg NOW STAT IV 09/16/16 07:09 09/16/16 07:11 DC 09/16/16 07:28 4 MG Sodium Chloride 250 ml @ 999 mls/hr Q16M STAT IV 09/16/16 07:09 09/16/16 07:24 DC 09/16/16 07:28 999 MLS/HR Sodium Chloride 1,000 ml @ 125 mls/hr Q8H STAT IV 09/16/16 07:09 09/16/16 12:29 DC 09/16/16 07:29 125 MLS/HR ECG Indication: abdominal pain Rate (beats per minute): 64 Rhythm: normal sinus Findings: no acute ischemic change, no ectopy ED Course 0704: Past medical records reviewed. The patient was evaluated in room A2. A complete history and physical examination was performed. 0709: Ordered Sodium chloride 1000 ml @ 125 mls/hr IV, Sodium Chloride 250 ml @ 999 mls/hr IV, Zofran Inj 4 mg IV, Fentanyl Inj 25 mcg IV. 1044: I reevaluated the patient and she is resting. I discussed the exam findings with her and her daughter and I discussed the treatment plan. They verbalized complete understanding and agreement. The patient is ready to go home. Medical Decision Differential diagnosis: Etiologies such as metabolic, infection, hypo/hyperglycemia, electrolyte abnormalities, cardiac sources, intracerebral event, toxicologic, neurologic, as well as others were entertained. This patient was evaluated and appeared to be in no significant distress. Patient was evaluated and felt to be in good condition. CT scan of the abdomen and pelvis was performed without any significant acute inflammatory findings. There is some bladder distention despite the fact that the patient came in with a diaper that was saturated and had a straight cath. A Gamez catheter was placed for greater than 600 mL of urine. Patient did receive IV fentanyl, IV Zofran for her discomfort. She was hydrated with normal saline solution. Urinalysis is negative. This I feel the patient likely is periodically retaining urine. The catheter was removed and nursing staff at her facility will need to be on alert for urinary retention and use a when necessary straight cath. Patient's daughter is at the bedside and agrees with the plan. She was discharged follow-up with a primary care physician will return to the ER for worsening of symptoms or any medical concerns. Medication Reconcilliation Current Medication List: was personally reviewed by me Blood Pressure Screening Patient's blood pressure: Elevated blood pressure Blood pressure disposition: Elevated BP felt to be situational, Did not require urgent referral Impression Primary Impression: Urinary retention Scribe Attestation The scribe's documentation has been prepared under my direction and personally reviewed by me in its entirety. I confirm that the note above accurately reflects all work, treatment, procedures, and medical decision making performed by me. Departure Information Dispostion Home / Self-Care Referrals PRITESH HACKETT (PCP) Forms HOME CARE DOCUMENTATION FORM, IMPORTANT VISIT INFORMATION Patient Instructions My [facility] Additional Instructions Diagnosis: Urinary retention Drink plenty of fluids Montior urinary output daily, pt may need an occasional straight cath of bladder seems full Follow up with your PCP this week for reevaluation. Return to the ED for worsening of symptoms or any medical concerns.
[2016-09-16 07:31] LABS: BASO % 0.2 %; BASO ABS # 0.01 K/uL (0-0.2); COMPLETE YES; EOS % 1.2 %; HEMATOCRIT 46.1 % (37-47); IG% 0.2 %; LYMPH ABS # 1.47 K/uL (1.2-3.4); MEAN CELL VOLUME 98.3 fL (80-100); MEAN CORPUSCULAR HEMOGLOBIN 32.6 pg (25-34); MEAN CORPUSCULAR HGB CONC 33.2 g/dl (32-36); MEAN PLATELET VOLUME 11.5 fL (7.4-10.4); MONO % 10.7 %; NEUT % 62.7 %; PLATELET COUNT 170 K/uL (130-400); RED BLOOD COUNT 4.69 M/uL (4.2-5.4); WHITE BLOOD COUNT 5.87 K/uL (4.8-10.8)
[2016-09-16 07:49] LABS: BUN/CREATININE RATIO 11.9 (10-20); CALCIUM 9.1 mg/dl (8.5-10.1); CREATININE 0.79 mg/dl (0.60-1.20)
--- NOTE | 2016-09-16 07:57 | DIAGNOSTIC IMAGING REPORT ---
CT OF THE ABDOMEN AND PELVIS WITHOUT CONTRAST CLINICAL HISTORY: Right flank pain. Urinary symptoms. COMPARISON STUDY: CT of the abdomen and pelvis July 22, 2016. TECHNIQUE: Axial images of the abdomen and pelvis were obtained without IV contrast. Images were reviewed in the axial, sagittal, and coronal planes. A dose lowering technique was utilized adhering to the principles of ALARA. FINDINGS: Groundglass opacities within the lower lungs likely reflect atelectasis. There is geographic fatty infiltration of the right hepatic lobe. Unenhanced images of the spleen, adrenal glands and pancreas are unremarkable. There are multiple water attenuation bilateral renal lesions. These are suboptimally assessed on this exam but were shown to reflect cysts on contrast enhanced study of July 22, 2016. The bladder is moderately distended. There is no hydronephrosis or a true ureter. There are several punctate left renal calculi. There is no evidence for a bowel obstruction. There is a stable 2.6 cm water attenuation left adnexal lesion which favors a cyst. There is colonic diverticulosis without evidence for acute diverticulitis. No suspicious skeletal lesions are identified. There is no lymphadenopathy. There is extensive atherosclerotic plaque of the abdominal aorta. The caliber is normal. IMPRESSION: 1. Punctate left-sided nephrolithiasis. No ureteral calculi or hydronephrosis. 2. Moderate distention of the bladder. 3. Geographic fatty infiltration of the right hepatic lobe. 4. Sigmoid diverticulosis without evidence for acute diverticulitis. No bowel obstruction. Electronically signed by: Ozzie Dickson M.D. 09/16/2016 7:56 AM Dictated Date/Time: 09/16/2016 7:46 AM
[2016-09-16 11:32] VITALS: BP 148/52; PULSE 65; O2SAT 95
== END 2016-09-16 11:33 | disposition home or self-care (01) ==
LOC: EDUNIT# 06:22 → C.EDA 06:27
DX: R33.9 Retention of urine, unspecified (principal); I25.10 Atherosclerotic heart disease of native coronary artery without angina pectoris; E78.5 Hyperlipidemia, unspecified; I10 Essential (primary) hypertension; R19.7 Diarrhea, unspecified; Z90.710 Acquired absence of both cervix and uterus; Z83.3 Family history of diabetes mellitus; Z82.49 Family history of ischemic heart disease and other diseases of the circulatory system; Z80.2 Family history of malignant neoplasm of other respiratory and intrathoracic organs; Z79.82 Long term (current) use of aspirin

== ENCOUNTER → 2016-09-21 | Outpatient (CLI) | payer OTHER, MEDICARE ==
[2016-09-21 13:09] LABS: ESTIMATED AVERAGE GLUCOSE 177 mg/dl; HA1C FLAG Normal (Normal)
== END | disposition home or self-care (01) ==
LOC: C.LABWYN 12:34
PROVIDERS: ATTEND Internal Medicine
DX: E11.9 Type 2 diabetes mellitus without complications (principal); I10 Essential (primary) hypertension; E78.00 Pure hypercholesterolemia, unspecified; E03.9 Hypothyroidism, unspecified; G47.33 Obstructive sleep apnea (adult) (pediatric); I69.351 Hemiplegia and hemiparesis following cerebral infarction affecting right dominant side; I25.10 Atherosclerotic heart disease of native coronary artery without angina pectoris

== ENCOUNTER → 2016-10-30 | Outpatient (CLI) | payer OTHER, MEDICARE ==
--- NOTE | 2016-10-30 13:34 | DIAGNOSTIC IMAGING REPORT ---
RIGHT NECK ULTRASONOGRAPHY CLINICAL HISTORY: ENLARGED R SIDE NECK LYMPHNODE COMPARISON STUDY: Cervical spine CT scan performed July 22, 2016 FINDINGS: No focal masses are visualized. The right parotid gland appears larger than the left. Review of the prior CT scan indicates that this could be secondary to left parotid gland atrophy. Alternatively a infiltrative process of the right parotid gland potentially appear similar. IMPRESSION: Pronounced parotid gland asymmetry. This could be secondary to either an infiltrative process of the right parotid gland, or marked fatty atrophy of the left parotid gland.. Clinical correlation in this regard is advocated Electronically signed by: Alon Almaraz M.D. 10/30/2016 1:33 PM Dictated Date/Time: 10/30/2016 1:27 PM
== END | disposition home or self-care (01) ==
LOC: C.ULTR 12:54
PROVIDERS: ATTEND Physician Assistant
DX: R22.1 Localized swelling, mass and lump, neck (principal)

== ENCOUNTER → 2016-11-28 | Outpatient (CLI) | payer OTHER, MEDICARE ==
[~2016-11-28] VITALS: Ht 157.5 cm; Wt 73.0 kg
[2016-11-28 14:42] VITALS: BP 123/68; PULSE 65; Ht 157.5 cm; Wt 73.0 kg
== END | disposition home or self-care (01) ==
LOC: C.NEUR 13:20
PROVIDERS: ATTEND Internal Medicine Pulmonary Disease
DX: G47.30 Sleep apnea, unspecified (principal); I10 Essential (primary) hypertension; I63.9 Cerebral infarction, unspecified